=== PATIENT | female | born 1940 | race Caucasian/White ===

== ENCOUNTER 2017-04-28 19:54 | Inpatient (IN) | payer OTHER, MEDICARE ==
[~2017-04-28 19:54] MED LIST: DILA100C PO; KEPP1000 PO; LEVE250 PO; LORA-392 PO
[2017-04-28 19:55] VITALS: BP 160/84; PULSE 81; RESP 16; TEMP 98.9; O2SAT 97
--- NOTE | 2017-04-28 21:17 | RADRPT ---
EXAM DATE/TIME: 04/28/2017 20:39 [facility] COMPARISON: No previous studies available for comparison. INDICATIONS : Right wrist pain, fell MEDICAL HISTORY : Stroke. Seizures SURGICAL HISTORY : None. ENCOUNTER: Initial ACUITY: 1 day PAIN SCORE: 9/10 LOCATION: Right Wrist FINDINGS: Two view examination of the right wrist demonstrates comminuted fracture distal radius the sella styl oid fracture. No posterior displacement. No dislocation. CONCLUSION: 1. Comminuted fracture distal radius with displacement posteriorly. Ulnar styloid fracture. No disloc ation. Edvin Hogue MD on April 28, 2017 at 21:12 Board Certified Radiologist. This report was verified electronically.
[2017-04-28] MEDS ORDERED: MORPHINE SULFATE 4 MG/ML INJ IV PUSH ONE (22:00)
[2017-04-28] MEDS ORDERED: ONDANSETRON HCL 4 MG/2 ML VIAL IV PUSH ONE (22:00)
--- NOTE | 2017-04-28 22:00 | PD ---
HPI Chief Complaint: Musculoskeletal Complaint Time Seen by Provider: 21:47 Travel History International Travel<30 days: No Contact w/Intl Traveler<30days: No Traveled to known affect area: No History of Present Illness HPI The patient is a 76 year old female who presents to the [facility] emergency department with a history of right wrist pain after tripping and falling when coming out of the bathroom early in the afternoon today. The patient reports having decreased range of motion of the right wrist. The patient was placed in a box splint prior to arrival. She denies hitting her head or losing consciousness. She denies having any neck pain, paresthesias, or weakness to her extremities. She denies having any chest pain, chest pressure, shortness of breath, or abdominal pain. She denies having any other extremity pain. [facility] Past Medical History Narrative Medical The patient's past medical history is significant for a prior history of stroke , history of seizure disorder. Blood Disorders: No Cancer: No Cerebrovascular Accident: Yes ( states "possibly 8 years ago") Diminished Hearing: No Endocrine: No Gastrointestinal Disorders: No Genitourinary: No Headaches: No Neurologic: Yes Psychiatric: No Reproductive: No Respiratory: No Seizures: Yes Menopausal: Yes Past Surgical History Surgical History: No Previous Surgery Other Surgery: No Social History Alcohol Use: No Tobacco Use: No Substance Use: No Allergies-Medications (Allergen,Severity, Reaction): Coded Allergies: No Known Allergies (Verified Allergy, Unknown, 04/28/17) Reported Meds & Prescriptions Reported Meds & Active Scripts Active Narrative Medication Keppra and Dilantin Review of Systems Except as stated in HPI: all other systems reviewed are Neg General / Constitutional: No: Fever Eyes: No: Visual changes HENT: No: Headaches Cardiovascular: No: Chest Pain or Discomfort Respiratory: No: Shortness of Breath Gastrointestinal: No: Abdominal Pain Genitourinary: No: Dysuria Musculoskeletal: Positive: Myalgias, Arthralgias, Limited ROM, Edema, Pain Skin: No Rash Neurologic: No: Weakness, Focal Abnormalities, Change in Mentation, Slurred Speech, Sensory Disturbance Psychiatric: No: Depression Endocrine: No: Polydipsia Hematologic/Lymphatic: No: Easy Bruising Physical Exam Narrative General: The patient is a well-developed well-nourished female in no acute distress. Head and Neck exam: Head is normocephalic atraumatic. Eyes: EOMI, pupils are equal round and reactive to light. Nose: Midline septum with pink mucous membranes Mouth: Dentition unremarkable. Moist mucus membranes. Posterior oropharynx is not erythematous. No tonsillar hypertrophy. Uvula midline. Airway patent. Neck: No palpable lymphadenopathy. No nuchal rigidity. No thyromegaly. Cardiovascular: Regular rate and rhythm without murmurs, gallops, or rubs. Lungs: Clear to auscultation bilaterally. No wheezes, rhonchi, or rales. Abdomen: Soft, without tenderness to palpation in all 4 quadrants of the abdomen. No guarding, rebound, or rigidity. Normal bowel sounds are audible. No tenderness on palpation of McBurney's point. Extremities: No clubbing, cyanosis, or edema. 2+ pulses in all 4 extremities. On examination of the area of interest, the right upper extremity, the patient has a box splint in place. This was gently cut down and the patient was noted to have deformity of the distal radius and ulna. There is no penetration scan. The patient has soft compartments. The patient has less than 3 capillary refill of her digits, intact sensation of her digits. They are pink in color. The patient has crepitus on palpation of the distal radius and ulna fracture. Back: No spinous process tenderness to palpation. No costovertebral angle tenderness to palpation. Neurologic Exam: Cranial nerves 2-12 were intact on exam. Strength is 5/5 in all 4 extremities. No sensory deficits noted. Skin Exam: No rash noted. Intact skin that is warm and dry. Data Data Last Documented VS Vital Signs Date Time Temp Pulse Resp B/P (MAP) Pulse Ox O2 Delivery O2 Flow Rate FiO2 04/28/17 22:18 16 97 Room Air 04/28/17 19:55 98.9 81 Orders Orders Wrist, Limited (Ap&Lat) (04/28/17 ) Electrocardiogram (04/28/17 21:47) Complete Blood Count With Diff (04/28/17 21:47) Comprehensive Metabolic Panel (04/28/17 21:47) Prothrombin Time / Inr (Pt) (04/28/17 21:47) Act Partial Throm Time (Ptt) (04/28/17 21:47) Urinalysis - C+S If Indicated (04/28/17 21:47) Chest, Single Ap (04/28/17 21:47) Iv Access Insert/Monitor (04/28/17 21:47) Ecg Monitoring (04/28/17 21:47) Oximetry (04/28/17 21:47) Morphine Inj (Morphine Inj) (04/28/17 22:00) Ondansetron Inj (Zofran Inj) (04/28/17 22:00) Sodium Chlorid 0.9% 500 Ml Inj (Ns 500 M (04/28/17 22:15) Ice/Cold Pack (04/28/17 22:02) Phenytoin (Dilantin) (04/28/17 22:36) Admit To Inpatient (04/28/17 ) Vital Signs (Adult) Q4H (04/28/17 22:37) Cold Meat Chef / Telemetry .CONTINUOUS (04/28/17 22:37) Diet Npo (04/29/17 Breakfast) Sodium Chloride 0.9% Flush (Ns Flush) (04/28/17 22:45) Sodium Chloride 0.9% Flush (Ns Flush) (04/29/17 09:00) Basic Metabolic Panel (Bmp) (04/29/17 06:00) Complete Blood Count With Diff (04/29/17 06:00) Pt Request For Service (04/28/17 22:37) Case Management Consult (04/28/17 22:37) Naloxone Inj (Narcan Inj) (04/28/17 22:45) Inpatient Certification (04/28/17 ) Morphine Inj (Morphine Inj) (04/28/17 22:45) Admit Order (Ed Use Only) (04/28/17 22:38) Labs Laboratory Tests Test 04/28/17 22:10 White Blood Count 6.8 TH/MM3 Red Blood Count 4.43 MIL/MM3 Hemoglobin 13.7 GM/DL Hematocrit 39.8 % Mean Corpuscular Volume 89.8 FL Mean Corpuscular Hemoglobin 31.0 PG Mean Corpuscular Hemoglobin Concent 34.5 % Red Cell Distribution Width 13.4 % Platelet Count 218 TH/MM3 Mean Platelet Volume 8.4 FL Neutrophils (%) (Auto) 68.5 % Lymphocytes (%) (Auto) 18.4 % Monocytes (%) (Auto) 10.1 % Eosinophils (%) (Auto) 2.1 % Basophils (%) (Auto) 0.9 % Neutrophils # (Auto) 4.6 TH/MM3 Lymphocytes # (Auto) 1.2 TH/MM3 Monocytes # (Auto) 0.7 TH/MM3 Eosinophils # (Auto) 0.1 TH/MM3 Basophils # (Auto) 0.1 TH/MM3 CBC Comment DIFF FINAL Differential Comment Prothrombin Time 10.3 SEC Prothromb Time International Ratio 1.0 RATIO Activated Partial Thromboplast Time 23.8 SEC Blood Urea Nitrogen 9 MG/DL Creatinine 0.60 MG/DL Random Glucose 100 MG/DL Total Protein 7.3 GM/DL Albumin 4.0 GM/DL Calcium Level 8.6 MG/DL Alkaline Phosphatase 101 U/L Aspartate Amino Transf (AST/SGOT) 17 U/L Alanine Aminotransferase (ALT/SGPT) 30 U/L Total Bilirubin 0.2 MG/DL Sodium Level 141 MEQ/L Potassium Level 3.5 MEQ/L Chloride Level 105 MEQ/L Carbon Dioxide Level 28.8 MEQ/L Anion Gap 7 MEQ/L Estimat Glomerular Filtration Rate 97 ML/MIN Phenytoin (Dilantin) Level 13.5 MCG/ML MDM Medical Decision Making Medical Screen Exam Complete: Yes Emergency Medical Condition: Yes Medical Record Reviewed: Yes Interpretation(s) Last Impressions Chest X-Ray 04/28/172146 Signed Impressions: Service Date/Time: Friday, April 28, 2017 22:03 - CONCLUSION: 1. Subsegmental basilar airspace disease. No effusion or pneumothorax. Edvin Hogue MD Wrist X-Ray 04/28/17 0000 Signed Impressions: Service Date/Time: Friday, April 28, 2017 20:39 - CONCLUSION: 1. Comminuted fracture distal radius with displacement posteriorly. Ulnar styloid fracture. No dislocation. Edvin Hogue MD Differential Diagnosis Wrist fracture, versus dislocation, versus contusion Narrative Course During the course of the patient's emergency department visit, the patient's history, examination, and differential diagnosis were reviewed with the patient. The patient was placed on a cardiac cath tech with oximetry and frequent blood pressure monitoring. The patient had IV access obtained and blood work sent for analysis. The patient had an EKG done on arrival that shows a sinus rhythm heart rate of 74, no acute ST segment changes. The patient was initially provided morphine 4 mg IV for pain, Zofran 4 mg IV for nausea, normal saline a 500 mL bolus. The patient's laboratory studies were reviewed and remarkable for a white count of a 6.8, hemoglobin 13.7, platelets 218 with 10.1 monocytes, CMP within normal limits, PT 10.3, PTT 23.8, Dilantin level 13.5 Radiology studies were reviewed and remarkable for chest x-ray that shows no evidence of acute cardiopulmonary disease. Right wrist x-ray reveals a comminuted posterior displaced radius fracture. No evidence of dislocation. The patient will be placed in a sugar tong splint. A call was placed out to Dr. Mayberry the orthopedic physician on-call. I spoke to Noah, his SOHAIL in the emergency department. He evaluated the patient's x- rays and also evaluated the patient. He requested that the patient be admitted to the medical service with consultation to Dr. Mayberry. The patient will be made n.p.o. after midnight and have operative repair tomorrow. The patient's results were discussed with the patient, including the plan of care. I explained that further testing and/ or monitoring is indicated based on the patient's history, examination, and/ or laboratory findings. Therefore, I recommended admission for additional evaluation. The patient expressed understanding and was agreeable with this plan. The patient was admitted to the hospital in stable condition and sent to a bed under the care of the [facility] service. Physician Communication Physician Communication The patient's case including history, pertinent physical examination findings, and laboratory studies were discussed with Dr. Vasquez. It was agreed that the patient would be admitted to the [facility] service. Diagnosis Primary Impression: Right wrist fracture Qualified Codes: S62.101A - Fracture of unspecified carpal bone, right wrist, initial encounter for closed fracture Admitting Information Admitting Physician Requests: Observation Scripts Sennosides-Docusate Sodium (Senna-Plus) 8.6-50 Mg Tab 2 TAB PO DAILY for Constipation, #60 TAB 0 Refills Prov: Pallavi Pereira MD 04/29/17 Hydrocodone/Acetaminophen (Hydrocodone-Acetamin 7.5-325) 7.5 Mg-325 Mg Tablet 1 TAB PO Q3H Y for pain , #20 TAB Prov: Pallavi Pereira MD 04/29/17 Hydrocodone-Acetaminophen (Hydrocodone-Acetaminophen) 7.5 Mg-325 Mg Tab 1 TAB PO Q4H Y for PAIN, #60 TAB 0 Refills Prov: Michael Vasquez/Information Support Project Manager CARINE 04/29/17 Sherie Jacobsen MD Apr 28, 2017 22:00
[2017-04-28] MEDS ORDERED: SODIUM CHLORID 0.9% 500 ML INJ 500 ML IV ONE (22:15)
[2017-04-28 22:18] VITALS: RESP 16; O2SAT 97
[2017-04-28 22:41] LABS: AUTOMATED NEUTROPHIL # 4.6 TH/MM3 (1.8-7.7); BASOPHIL # 0.1 TH/MM3 (0-0.2); BASOPHIL % 0.9 % (0.0-2.0); EOSINOPHIL # 0.1 TH/MM3 (0-0.4); EOSINOPHIL % 2.1 % (0.0-4.0); HEMATOCRIT 39.8 % (35.0-46.0); HEMOGLOBIN 13.7 GM/DL (11.6-15.3); LYMPH % 18.4 % (9.0-44.0); LYMPHOCYTE # 1.2 TH/MM3 (1.0-4.8); MEAN CELL VOLUME 89.8 FL (80.0-100.0); MEAN CORPUSCULAR HGB CONC 34.5 % (32.0-36.0); MEAN PLATELET VOLUME 8.4 FL (7.0-11.0); MONO % 10.1 % (0.0-8.0); MONOCYTE # 0.7 TH/MM3 (0-0.9); NEUT % 68.5 % (16.0-70.0); PLATELET COUNT 218 TH/MM3 (150-450); RED BLOOD COUNT 4.43 MIL/MM3 (4.00-5.30); RED CELL DISTRIBUTION WIDTH 13.4 % (11.6-17.2); WHITE BLOOD COUNT 6.8 TH/MM3 (4.0-11.0)
--- NOTE | 2017-04-28 22:42 | RADRPT ---
EXAM DATE/TIME: 04/28/2017 22:03 [facility] COMPARISON: No previous studies available for comparison. INDICATIONS : Evaluate for pneumonia, pneumothorax, or communicable disease. Pre op wrist surgery. MEDICAL HISTORY : Stroke. Seizures. SURGICAL HISTORY : None. ENCOUNTER: Initial ACUITY: 1 day PAIN SCORE: 0/10 LOCATION: Bilateral chest FINDINGS: A single view of the chest demonstrates subsegmental basilar airspace disease. No significant effusio n. No pneumothorax. Tortuous aorta. Heart size mildly enlarged. CONCLUSION: 1. Subsegmental basilar airspace disease. No effusion or pneumothorax. Edvin Hogue MD on April 28, 2017 at 22:38 Board Certified Radiologist. This report was verified electronically.
[2017-04-28] MEDS ORDERED: MORPHINE SULFATE 2 MG/ML INJ IV PUSH PRN (22:45)
[2017-04-28] MEDS ORDERED: SODIUM CHLORIDE 0.9% FLUSH 10 ML FLUSH IV FLUSH PRN (22:45)
[2017-04-28] MEDS ORDERED: NALOXONE HCL 0.4 MG/ML AMP IV PUSH PRN (22:45)
[2017-04-28 23:05] LABS: ALT (GPT) 30 U/L (10-53); AST (GOT) 17 U/L (15-37); BICARBONATE 28.8 MEQ/L (21.0-32.0); BLOOD UREA NITROGEN 9 MG/DL (7-18); CALCIUM 8.6 MG/DL (8.5-10.1); CHLORIDE 105 MEQ/L (98-107); GLOMERULAR FILTRATION RATE 97 ML/MIN (>89); GLUCOSE,RANDOM 100 MG/DL (74-106); SODIUM (NA) 141 MEQ/L (136-145)
[2017-04-28 23:07] LABS: ALKALINE PHOSPHATASE 101 U/L (45-117); TOTAL BILIRUBIN ADULT 0.2 MG/DL (0.2-1.0); TOTAL PROTEIN 7.3 GM/DL (6.4-8.2)
[2017-04-28 23:17] LABS: PROTHROMBIN TIME - PATIENT 10.3 SEC (9.8-11.6)
--- NOTE | 2017-04-29 01:21 | HHI.HP ---
[facility] Service [facility] Primary Care Physician Reji Ackerman MD Admission Diagnosis comminuted right wrist fx s/p fall Diagnoses: Chief Complaint: Right wrist pain Travel History International Travel<30 Days: No Contact w/Intl Traveler <30 Da: No Traveled to Known Affected Are: No History of Present Illness 76-year-old female with a history of seizures presented to the ED with right wrist pain after a trip and fall. Patient states she was leaving the bathroom at a local restaurant she tripped and fell landing on her right wrist. She states the pain is a 8/10, intermittent, throbbing to her right wrist with no radiation. She does state that the morphine helps she has no associated symptoms. She denies any LOC, or hitting her head. She denies any chest pain, shortness of breath, fever or chills. Review of Systems Except as stated in HPI: all other systems reviewed are Neg Past Family Social History Past Medical History Seizures Anxiety CVA Past Surgical History Patient denies any history of surgeries Reported Medications Reported Meds & Active Scripts Active Keppra (Levetiracetam) 1,000 Mg Tab 1,000 Mg PO DAILY Reported Keppra (Levetriacetam) 250 Mg Tab 250 Mg PO BID Ativan (Lorazepam) 0.5 Mg Tab 0.5 Mg PO DIRECTED PRN Seizure Dilantin Kapseals (Phenytoin Sodium) 100 Mg Cap 500 Mg PO DAILY Dilantin Kapseals (Phenytoin Sodium) 100 Mg Cap 0 PO DAILY Allergies: Coded Allergies: No Known Allergies (Verified Allergy, Unknown, 04/28/17) Active Ordered Medications Current Medications Medications (Trade) Dose Ordered Sig/[place] Route Start Time Stop Time Status Last Admin (NS Flush) 2 ml UNSCH PRN IV FLUSH 04/28/17 22:45 (NS Flush) 2 ml BID IV FLUSH 04/29/17 09:00 (Narcan Inj) 0.4 mg UNSCH PRN IV PUSH 04/28/17 22:45 (Morphine Inj) 2 mg Q3H PRN IV PUSH 04/28/17 22:45 Family History Patient denies any family history, no heart disease or cancer Social History Patient denies any tobacco, alcohol or illicit drug use Physical Exam Vital Signs Vital Signs Date Time Temp Pulse Resp B/P (MAP) Pulse Ox O2 Delivery O2 Flow Rate FiO2 04/28/17 22:18 16 97 Room Air 04/28/17 19:55 98.9 81 16 160/84 (109) 97 Room Air Physical Exam GENERAL: This is a well-nourished, well-developed patient, in no acute distress SKIN: No rashes, ecchymoses or lesions. Cool and dry. HEAD: Atraumatic. Normocephalic. No temporal or scalp tenderness. EYES: Pupils equal round and reactive. ENT: Nose without bleeding, purulent drainage or septal hematoma. Airway patent. NECK: Trachea midline. No JVD or lymphadenopathy. Supple, nontender, no meningeal signs. CARDIOVASCULAR: Regular rate and rhythm without murmurs, gallops, or rubs. RESPIRATORY: Clear to auscultation. Breath sounds equal bilaterally. No wheezes , rales, or rhonchi. GASTROINTESTINAL: Abdomen soft, non-tender, nondistended MUSCULOSKELETAL: Right wrist pain, splinted. Able to wiggle fingers. No calf tenderness. NEUROLOGICAL: Awake and alert. Motor and sensory grossly within normal limits. Normal speech. Laboratory Laboratory Tests Test 04/28/17 22:10 White Blood Count 6.8 Red Blood Count 4.43 Hemoglobin 13.7 Hematocrit 39.8 Mean Corpuscular Volume 89.8 Mean Corpuscular Hemoglobin 31.0 Mean Corpuscular Hemoglobin Concent 34.5 Red Cell Distribution Width 13.4 Platelet Count 218 Mean Platelet Volume 8.4 Neutrophils (%) (Auto) 68.5 Lymphocytes (%) (Auto) 18.4 Monocytes (%) (Auto) 10.1 Eosinophils (%) (Auto) 2.1 Basophils (%) (Auto) 0.9 Neutrophils # (Auto) 4.6 Lymphocytes # (Auto) 1.2 Monocytes # (Auto) 0.7 Eosinophils # (Auto) 0.1 Basophils # (Auto) 0.1 CBC Comment DIFF FINAL Differential Comment Prothrombin Time 10.3 Prothromb Time International Ratio 1.0 Activated Partial Thromboplast Time 23.8 Blood Urea Nitrogen 9 Creatinine 0.60 Random Glucose 100 Total Protein 7.3 Albumin 4.0 Calcium Level 8.6 Alkaline Phosphatase 101 Aspartate Amino Transf (AST/SGOT) 17 Alanine Aminotransferase (ALT/SGPT) 30 Total Bilirubin 0.2 Sodium Level 141 Potassium Level 3.5 Chloride Level 105 Carbon Dioxide Level 28.8 Anion Gap 7 Estimat Glomerular Filtration Rate 97 Result Diagram: 04/28/17220904/28/172209 Imaging Last Impressions Chest X-Ray 04/28/177 Signed Impressions: Service Date/Time: Friday, April 28, 2017 22:03 - CONCLUSION: 1. Subsegmental basilar airspace disease. No effusion or pneumothorax. Edvin Hogue MD Wrist X-Ray 04/28/17 0000 Signed Impressions: Service Date/Time: Friday, April 28, 2017 20:39 - CONCLUSION: 1. Comminuted fracture distal radius with displacement posteriorly. Ulnar styloid fracture. No dislocation. MD Simona Serrano VTE Risk Assessment Caprini VTE Risk Assessment: No/Low Risk (score <= 1) Caprini Risk Assessment Model Point Value = 1 Point Value = 2 Point Value = 3 Point Value = 5 Age 41-60 Minor surgery BMI > 25 kg/m2 Swollen legs Varicose veins or History of unexplained or recurrent spontaneous Oral contraceptives or hormone replacement Sepsis (< 1 month) Serious lung disease, including pneumonia (< 1 month) Abnormal pulmonary function Acute myocardial infarction Congestive heart failure (< 1 month) History of inflammatory bowel disease Medical patient at bed rest Age 61-74 Arthroscopic surgery Major open surgery (> 45 min) Laparoscopic surgery (> 45 min) Malignancy Confined to bed (> 72 hours) Immobilizing plaster cast Central venous access Age >= 75 History of VTE Family history of VTE Factor V Leiden Prothrombin [id number] Lupus anticoagulant Anticardiolipin antibodies Elevated serum homocysteine Heparin-induced thrombocytopenia Other congenital or acquired thrombophilia Stroke (< 1 month) Elective arthroplasty Hip, pelvis, or leg fracture Acute spinal cord injury (< 1 month) Prophylaxis Regimen Total Risk Factor Score Risk Level Prophylaxis Regimen 0-1 Low Early ambulation 2 Moderate Order ONE of the following: *Sequential Compression Device (SCD) *Heparin 5000 units SQ BID 3-4 Higher Order ONE of the following medications: *Heparin 5000 units SQ TID *Enoxaparin/Lovenox 40 mg SQ daily (WT < 150 kg, CrCl > 30 mL/min) *Enoxaparin/Lovenox 30 mg SQ daily (WT < 150 kg, CrCl > 10-29 mL/min) *Enoxaparin/Lovenox 30 mg SQ BID (WT < 150 kg, CrCl > 30 mL/min) AND/OR *Sequential Compression Device (SCD) 5 or more Highest Order ONE of the following medications: *Heparin 5000 units SQ TID (Preferred with Epidurals) *Enoxaparin/Lovenox 40 mg SQ daily (WT < 150 kg, CrCl > 30 mL/min) *Enoxaparin/Lovenox 30 mg SQ daily (WT < 150 kg, CrCl > 10-29 mL/min) *Enoxaparin/Lovenox 30 mg SQ BID (WT < 150 kg, CrCl > 30 mL/min) AND *Sequential Compression Device (SCD) Assessment and Plan Problem List: (1) Right wrist fracture ICD Code: S62.101A - Fracture of unspecified carpal bone, right wrist, initial encounter for closed fracture (2) Seizure disorder ICD Code: G40.909 - Epilepsy, unspecified, not intractable, without status epilepticus Status: Acute Assessment and Plan 76-year-old female with a history of seizures presented to the ED with right wrist pain after a trip and fall. Right wrist fracture Wrist x-ray reviewed and shows a comminuted fracture distal radius with displacement posteriorly, ulnar styloid fracture. -Consult orthopedics -Pain management with IV morphine -Nothing by mouth -Elevate and ice when necessary Seizures, chronic -Continue home medications -Dilantin level pending DVT prophylaxis: SCDs Discussed Condition With Patient and RN Physician Certification 2 Midnight Certification Type: Admission for Inpatient Services Order for Inpatient Services The services are ordered in accordance with Medicare regulations or non- Medicare payer requirements, as applicable. In the case of services not specified as inpatient-only, they are appropriately provided as inpatient services in accordance with the 2-midnight benchmark. Estimated LOS (days): 2 days is the estimated time the patient will need to remain in the hospital, assuming treatment plan goals are met and no additional complications. Post-Hospital Plan: Shania Harper Apr 29, 2017 01:21
[2017-04-29 02:28] VITALS: BP 122/59; PULSE 86; RESP 18; TEMP 98.3; O2SAT 95
[2017-04-29 05:11] VITALS: BP 124/60; PULSE 68; RESP 18; TEMP 97.8; O2SAT 96
[2017-04-29] MEDS ORDERED: TOPI100 PO (06:41)
[2017-04-29] MEDS ORDERED: DILA100C PO (06:41)
[2017-04-29 06:57] LABS: AUTOMATED NEUTROPHIL # 6.7 TH/MM3 (1.8-7.7); BASOPHIL % 0.5 % (0.0-2.0); EOSINOPHIL % 0.3 % (0.0-4.0); HEMATOCRIT 38.1 % (35.0-46.0); HEMOGLOBIN 13.2 GM/DL (11.6-15.3); LYMPH % 11.4 % (9.0-44.0); MEAN CELL VOLUME 90.3 FL (80.0-100.0); MEAN CORPUSCULAR HEMOGLOBIN 31.3 PG (27.0-34.0); MEAN CORPUSCULAR HGB CONC 34.7 % (32.0-36.0); MEAN PLATELET VOLUME 8.2 FL (7.0-11.0); MONO % 9.7 % (0.0-8.0); MONOCYTE # 0.8 TH/MM3 (0-0.9); NEUT % 78.1 % (16.0-70.0); PLATELET COUNT 185 TH/MM3 (150-450); RED BLOOD COUNT 4.22 MIL/MM3 (4.00-5.30); RED CELL DISTRIBUTION WIDTH 13.1 % (11.6-17.2); WHITE BLOOD COUNT 8.6 TH/MM3 (4.0-11.0)
[2017-04-29 07:13] LABS: BICARBONATE 24.8 MEQ/L (21.0-32.0); CALCIUM 8.3 MG/DL (8.5-10.1); CREATININE 0.57 MG/DL (0.50-1.00)
[2017-04-29 08:00] VITALS: BP 134/60; PULSE 83; RESP 20; TEMP 97.7; O2SAT 99
--- NOTE | 2017-04-29 08:35 | PD.ORT.PN ---
Subjective Subjective Remarks Fall at home yesterday with significant pain to right wrist. No other associated complaints Objective Vitals Vital Signs Date Time Temp Pulse Resp B/P (MAP) Pulse Ox O2 Delivery O2 Flow Rate FiO2 04/29/17 05:11 97.8 68 18 124/60 (81) 96 04/29/17 02:28 98.3 86 18 122/59 (80) 95 04/28/17 22:18 16 97 Room Air 04/28/17 19:55 98.9 81 16 160/84 (109) 97 Room Air Result Diagram: 04/29/17 0610 04/29/17 0610 Other Results Laboratory Tests Test 04/28/17 22:10 Prothromb Time International Ratio 1.0 RATIO Prothrombin Time 10.3 SEC (9.8-11.6) Imaging Last 72 hours Impressions Chest X-Ray 04/28/172146 Signed Impressions: Service Date/Time: Friday, April 28, 2017 22:03 - CONCLUSION: 1. Subsegmental basilar airspace disease. No effusion or pneumothorax. Edvin Hogue MD Wrist X-Ray 04/28/17 0000 Signed Impressions: Service Date/Time: Friday, April 28, 2017 20:39 - CONCLUSION: 1. Comminuted fracture distal radius with displacement posteriorly. Ulnar styloid fracture. No dislocation. Edvin Hogue MD Last 24 hours Impressions Chest X-Ray 04/28/172146 Signed Impressions: Service Date/Time: Friday, April 28, 2017 22:03 - CONCLUSION: 1. Subsegmental basilar airspace disease. No effusion or pneumothorax. Edvin Hogue MD Objective Remarks Left upper extremity: No pain with range of motion and neurovascularly intact Right upper extremity: No pain with motion of shoulder. Splint in place. Intact sensation distally in all her fingers. She has good capillary refills Assessment & Plan Assessment and Plan Right interarticular distal radius fracture Maintain splint Sign consents Nothing by mouth Surgery this morning with Dr. Grewal for open reduction internal fixation of right distal radius Ryan Ragsdale Jr. Apr 29, 2017 08:35
[2017-04-29] MEDS ORDERED: PHENYTOIN SODIUM 100 MG CAP PO SCH ×2 (09:00→21:00)
[2017-04-29] MEDS ORDERED: TOPIRAMATE 100 MG TAB PO SCH (09:00)
[2017-04-29] MEDS ORDERED: SODIUM CHLORIDE 0.9% FLUSH 10 ML FLUSH IV FLUSH SCH (09:00)
[2017-04-29] MEDS ORDERED: TOPIRAMATE 25 MG TAB PO SCH (09:00)
[2017-04-29] MEDS ORDERED: METOPROLOL TARTRATE 25 MG TAB PO PRN (09:30)
[2017-04-29] MEDS ORDERED: CHLORHEXIDINE GLUCONATE 2 % 1 PACK (2 CLOTHS) TOPICAL PRN (09:30)
[2017-04-29] MEDS ORDERED: LACTATED RINGER'S 1000 ML IV PRN (09:30)
[2017-04-29] MEDS ORDERED: SODIUM CHLORID 0.9% 500 ML IV PRN (09:30)
[2017-04-29] MEDS ORDERED: INSULIN HUMAN REGULAR 1,000 UNITS/10 ML VIAL SQ PRN (09:30)
[2017-04-29] MEDS ORDERED: POVIDONE IODINE 5% (ANTISEPSIS KIT) 4 APPLICATIONS EACH NARE PRN (09:30)
[2017-04-29] MEDS ORDERED: HYDR-3580 PO ×2 (09:39→13:20)
[2017-04-29] MEDS ORDERED: GENTAMICIN SULFATE 80 MG/2 ML VIAL ONE (09:56)
[2017-04-29] MEDS ORDERED: VANCOMYCIN HCL 1000 MG VIAL ONE (09:56)
--- NOTE | 2017-04-29 09:57 | MB ---
cc: ADIN REBOLLEDO DATE OF ADMISSION 04/28/2017 DATE OF CONSULTATION 04/29/2017 REASON FOR CONSULTATION Right distal radius fracture. CONSULTING PHYSICIAN Dr. Vasquez HISTORY Ms. Gutierrez is a 76-year-old female. She describes a mechanical fall. She was leaving the bathroom at a local restaurant. She fell and landed on her outstretched right arm. She had immediate right wrist pain. She presented to the emergency room where x-rays revealed a displaced right distal radius fracture. She is currently awake and alert in the emergency room. Her only complaint is her right wrist. The pain is worse with movement. She denies dizziness, syncope or loss of consciousness. PAST MEDICAL HISTORY ILLNESSES 1. Seizures. 2. Anxiety. 3. History of CVA. SURGERIES None. MEDICATIONS 1. Keppra. 2. Ativan 3. Dilantin. ALLERGIES No known drug allergies. FAMILY HISTORY The patient denies any familial medical problems. She denies any history of anesthetic problems in her family. SOCIAL HISTORY The patient denies alcohol, tobacco or drug use. REVIEW OF SYSTEMS The patient denies headache, visual changes, neck pain, chest pain, shortness of breath, abdominal pain, nausea, vomiting, recent weight loss, fever, chills, numbness or tingling of extremities or recent weight loss. She complains of right wrist pain. The pain is worse with movement. PHYSICAL EXAMINATION GENERAL: The patient is a pleasant 76-year-old female. She is awake and alert. She is alert and oriented x3. She is in no acute distress. Appears well-developed, well-nourished. VITAL SIGNS: Temperature 97.8, pulse 68, respirations 18, blood pressure 124/60, O2 sat 96% on room air. HEAD: The patient is normocephalic. EYES: Pupils are equal. NECK: Soft, nontender. Trachea is midline. ABDOMEN: Soft, nontender, nondistended. EXTREMITIES: Examination of the right arm reveals no tenderness around her shoulder or elbow. She is very tender to palpation of the distal radius. There is mild deformity present. Skin is intact. She has intact sensation in the radial, ulnar and median nerve distributions. Radial pulse is palpable. Examination of the left arm reveals no pain with shoulder, elbow or wrist motion. She has intact sensation in all fingers. She has good capillary refill in all fingers. Skin is intact. Radial pulse is palpable. Examination of the bilateral lower extremities reveals no pain with hip, knee or ankle motion. Skin is intact to both feet. Dorsalis pedis pulses are palpable. LABORATORY DATA The white blood cell count is 8.6, hemoglobin is 13.2, hematocrit is 38.1. INR is 1.0. BUN is 11, creatinine is 0.57. X-RAYS X-rays of the right wrist wee reviewed. X-rays reveal a displaced right distal radius fracture. IMPRESSION 1. Displaced right distal radius fracture. 2. Possible osteoporosis. 3. History of CVA. 4. History of seizures. PLAN The treatment options were discussed with the patient. At this point I would recommend open reduction, internal fixation of the right distal radius. The risks of surgery include bleeding, infection, injury to arteries, nerves, blood vessels, nonunion, malunion, tendon rupture, wound infection as well as medical complications including blood clot, stroke, heart attack and . All questions were answered. X-rays and lab results were reviewed today. I will plan on surgery today. All questions were answered. A mid-level provider in my office, nurse practitioner or PA, may see this patient on a follow-up basis and continue to implement the objective of this plan including: Starting or adjusting medications, injections of muscle, tendon, bursa or joints, cast application, orthotic or brace application, physical therapy, further radiographic studies including x-ray, MRI, CT, ultrasounds or bone scan, vascular studies, neurologic studies, or other specialist consultations, and proceeding with surgical management as appropriate. MD CARROLL Person/SMITA /8:54 AM /9:39 AM
[2017-04-29] MEDS ORDERED: BUPIVACAINE/EPINEPHRINE 0.25% 50 ML VIAL ONE (11:11)
[2017-04-29] MEDS ORDERED: ceFAZolin INJ 1,000 MG VIAL IV ONE ×2 (11:16→12:00)
[2017-04-29] MEDS ORDERED: MORPHINE SULFATE 4 MG/ML INJ IV PUSH PRN (11:45)
[2017-04-29] MEDS ORDERED: ACETAMINOPHEN/HYDROcodone 325 MG/7.5 MG TAB PO PRN (11:45)
--- NOTE | 2017-04-29 11:45 | PD.OP ---
cc: Antony Grewal MD Operative Report Date of Surgery: Apr 29, 2017 Preoperative Diagnosis: Displaced right distal radius fracture Postoperative Diagnosis: Procedure: Open reduction total fixation right distal radius Anesthesia: Gen. Surgeon: Antony Grewal Manager Media(s): VÍCTOR Manning PA-C The surgical procedure was assisted by my physician pharmacy sales assistant. My P.A. presence was necessary throughout this case for the manipulation and positioning of the surgical extremity. My P.A. was assisting me throughout the duration of this procedure. The skill set of a physician pharmacy sales assistant was medically necessary to complete this procedure. During the surgical case the surgical elastic knitter was working at the back table and the physician pharmacy sales assistant was directly assisting me. Operation and Findings: Patient was seen and evaluated preoperatively and found to have a displaced right distal radius fracture. Informed consent was obtained after detailed discussion of risk and benefits including bleeding, infection, injury to arteries, nerves, and blood vessels, weakness and numbness of hand, and tendon rupture. Informed consent was obtained. Patient received IV antibiotics prior to incision. Timeout procedure was performed. Operative extremity was prepped with alcohol followed by Hibiclens and draped usual sterile fashion. A standard volar approach to the distal radius was utilized. A 3 inch incision was made over the FCR tendon. Tendon sheath was opened. Pronator quadratus was elevated up. The fracture site was now visualized. The fracture did have intra-articular extension. Traction was applied. The articular surface was reduced. Fracture fragments were manipulated to achieve excellent reduction. K wires were used to hold provisional fixation. Fluoroscopy confirmed appropriate alignment of fracture. A Synthes 2 column variable angle distal radius plate was selected. Plate was provisionally fixed to bone with K wires. 2.7 and 2.4 cortical screws were used to compress plate to bone. Fluoroscopy confirmed appropriate alignment of fracture with well-placed hardware. Multiple 2.4 locking screws were now placed distally. Screws were predrilled and measured for appropriate length. 2 additional screws were placed into the shaft. K wires were removed. Final fluoroscopy revealed excellent of fracture with well-placed hardware. The wound was thoroughly irrigated with sterile saline. Subcutaneous tissue was closed with 3-0 Vicryl and skin was closed with 3-0 nylon. Sterile dressings were applied with Xeroform, 4 x 4, soft roll , and a well padded volar splint. Patient was awakened and transferred to recovery room in stable condition Antony Grewal MD Apr 29, 2017 11:45
[2017-04-29] MEDS ORDERED: DO NOT ADM ANY ANTICOAGULANT DRUGS PRN (11:56)
[2017-04-29] MEDS ORDERED: NEOSTIGMINE 5 MG/5 ML SYRINGE IV PUSH ONE (12:00)
[2017-04-29] MEDS ORDERED: ONDANSETRON HCL 4 MG/2 ML VIAL IV ONE (12:00)
[2017-04-29] MEDS ORDERED: ACETAMINOPHEN 1000 MG/100 ML 100 ML IV ONE ×2 (12:00→14:00)
[2017-04-29] MEDS ORDERED: LIDOCAINE HCL 1% PF 5 ML SYRINGE OTHER ONE (12:00)
[2017-04-29] MEDS ORDERED: PROPOFOL 200 MG/20 ML AMP IV ONE (12:00)
[2017-04-29] MEDS ORDERED: DEXAMETHASONE SOD PHOS 4 MG/ML VIAL IV ONE (12:00)
[2017-04-29] MEDS ORDERED: GLYCOPYRROLATE 1 MG/5 ML SYRINGE IV PUSH ONE (12:00)
[2017-04-29] MEDS ORDERED: ROCURONIUM INJ 50 MG/5 ML SYRINGE IV PUSH ONE (12:00)
--- NOTE | 2017-04-29 12:18 | RADRPT ---
EXAM DATE/TIME: 04/29/2017 11:31 [facility] COMPARISON: WRIST RIGHT LIMITED(AP & LAT), April 28, 2017, 20:39. INDICATIONS : Post-op ORIF right distal radius fracture. MEDICAL HISTORY : None. SURGICAL HISTORY : None. ENCOUNTER: Subsequent ACUITY: 2 days PAIN SCORE: Non-responsive. LOCATION: Right upper extremity FINDINGS: AP and lateral views of the right wrist and in the operating room during a procedure demonstrates derrick cement of a volarly placed sideplate with multiple interlocking screws. There is improved anatomic al ignment. CONCLUSION: Improved alignment following distal radius ORIF. Brandon Wang MD on April 29, 2017 at 12:15 Board Certified Radiologist. This report was verified electronically.
[2017-04-29] MEDS ORDERED: *morphine SULFATE 4 MG/ML PERIprocedure ONLY ONE (12:27)
[2017-04-29] MEDS ORDERED: SENN1TAB PO (13:21)
--- NOTE | 2017-04-29 13:21 | HHI.DCPOC ---
Discharge Care Plan Goals to Promote Your Health * To prevent worsening of your condition and complications * To maintain your health at the optimal level Directions to Meet Your Goals Take your medications as prescribed Follow your dietary instruction Follow activity as directed Keep your appointments as scheduled Take your immunizations and boosters as scheduled If your symptoms worsen call your PCP, if no PCP go to Urgent Care Center or Emergency Room Smoking is Dangerous to Your Health. Avoid second hand smoke Call the 24-hour hour crisis hotline for domestic abuse at Pallavi Pereira MD Apr 29, 2017 13:21
--- NOTE | 2017-04-29 13:24 | HHI.PR ---
Subjective Remarks No events of the surgery. Cleared by orthopedic doctor to follow-up as outpatient Objective Vitals Vital Signs Date Time Temp Pulse Resp B/P (MAP) Pulse Ox O2 Delivery O2 Flow Rate FiO2 04/29/17 13:00 87 16 123/60 (81) 96 Room Air 04/29/17 12:45 72 16 135/69 (91) 96 Room Air 04/29/17 12:30 82 16 141/63 (89) 96 Room Air 04/29/17 12:15 70 16 141/63 (89) 98 Nasal Cannula 2 04/29/17 11:58 98.0 101 16 147/69 (95) 92 Nasal Cannula 2 04/29/17 08:00 97.7 83 20 134/60 (84) 99 04/29/17 05:11 97.8 68 18 124/60 (81) 96 04/29/17 02:28 98.3 86 18 122/59 (80) 95 04/28/17 22:18 16 97 Room Air 04/28/17 19:55 98.9 81 16 160/84 (109) 97 Room Air Result Diagram: 04/29/17 0610 04/29/17 0610 Imaging Last Impressions Wrist X-Ray 04/29/17 0000 Signed Impressions: Service Date/Time: Saturday, April 29, 2017 11:31 - CONCLUSION: Improved alignment following distal radius ORIF. Brandon Wang MD Chest X-Ray 04/28/172146 Signed Impressions: Service Date/Time: Friday, April 28, 2017 22:03 - CONCLUSION: 1. Subsegmental basilar airspace disease. No effusion or pneumothorax. Edvin Hogue MD Objective Remarks GENERAL: This is a well-nourished, well-developed patient, in no acute distress CARDIOVASCULAR: Regular rate and rhythm without murmurs, gallops, or rubs. RESPIRATORY: Clear to auscultation. Breath sounds equal bilaterally. No wheezes , rales, or rhonchi. GASTROINTESTINAL: Abdomen soft, non-tender, nondistended MUSCULOSKELETAL: Right wrist pain, s/p surgery, neurovascular intact. No calf tenderness. NEUROLOGICAL: Awake and alert. Motor and sensory grossly within normal limits. Normal speech. Procedures S/P Open reduction total fixation right distal radius by Dr Mayberry on 04/29/17 A/P Problem List: (1) Right wrist fracture ICD Code: S62.101A - Fracture of unspecified carpal bone, right wrist, initial encounter for closed fracture (2) Seizure disorder ICD Code: G40.909 - Epilepsy, unspecified, not intractable, without status epilepticus Status: Acute Assessment and Plan 76-year-old female with a history of seizures presented to the ED with right wrist pain after a trip and fall. Displaced right distal radius fracture S/P Open reduction total fixation right distal radius by Dr Mayberry on 04/29/17 Wrist x-ray reviewed and shows a comminuted fracture distal radius with displacement posteriorly, ulnar styloid fracture. -Consult orthopedics -Pain management Seizures, chronic -Continue home medications -Dilantin level pending DVT prophylaxis: SCDs Discussed Condition With Patient and nurse Discharge Planning Patient improved. Had surgery and is cleared by ortho Dr Mayberry for DC DC home in stable condition. To follow up as OP with PCP and consultants. Meds per med reconciliations Activity ad rene as tolerated. NWB on affected arm until cleared by ortho Pallavi Pereira MD Apr 29, 2017 13:24
[2017-04-29 14:34] VITALS: BP 140/75; PULSE 72; RESP 18; TEMP 97.8; O2SAT 99
--- NOTE | 2017-04-29 19:00 | EKG ---
Date Performed: 04/28/2017 Time Performed: 22:09:32 PTAGE: 76 years EKG: Sinus rhythm When compared to previous tracing, sinus rate is slower. ST depressions are less prominant. NORMAL E CG PREVIOUS TRACING : 04/06/2012 18.22 DOCTOR: Matt Chen Interpretating Date/Time 04/29/2017 19:00:25
== END 2017-04-29 14:40 | disposition home or self-care (01) | DRG 512 ==
LOC: NEPC 19:54 → NEDA 22:40 → NEDH 04-29 03:15
PROVIDERS: ADMIT Hospitalist; ATTEND Hospitalist
PROC: 0PSH04Z Reposition Right Radius with Internal Fixation Device, Open Approach (ICD-10-PCS; principal; 2017-04-29 10:27)
DX: S52.501A Unspecified fracture of the lower end of right radius, initial encounter for closed fracture (principal); S52.614A Nondisplaced fracture of right ulna styloid process, initial encounter for closed fracture; W01.0XXA Fall on same level from slipping, tripping and stumbling without subsequent striking against object, initial encounter; Y92.511 Restaurant or cafe as the place of occurrence of the external cause; G40.909 Epilepsy, unspecified, not intractable, without status epilepticus; F41.9 Anxiety disorder, unspecified; Z86.73 Personal history of transient ischemic attack (TIA), and cerebral infarction without residual deficits
CPT/HCPCS: 71045; 73100; 76000; 80048; 80053; 80185; 85025; 85610; 85730; 93005; C1713; J0131; J0690; J1100; J1580; J2270; J2405; J2710; J3010; J3370; J7040; J7120